=== PATIENT | male | born 1960 ===

== ENCOUNTER 2017-09-15 06:23 | Emergency (ER) | payer OTHER ==
[2017-09-15 06:56] VITALS: O2SAT 97
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
[2017-09-15 08:09] VITALS: BP 136/80; PULSE 89; RESP 18; TEMP 97.8
== END 2017-09-15 09:00 | disposition home or self-care (01) ==
LOC: C.ER 06:23
DX: M54.5 Low back pain (principal)